=== PATIENT | female | born 1965 | race Caucasian/White ===

== ENCOUNTER 2020-01-14 11:25 | Outpatient (CLI) | payer BC, SELFPAY ==
--- NOTE | ~2020-01-14 | XR_ITS ---
XR ankle RT min 3V DATE: 01/14/2020 12:33 INDICATION: Chronic lateral pain; no injury. TECHNIQUE: 4 views COMPARISON: None FINDINGS: Very prominent plantar calcaneal enthesopathy without associated periostitis or erosive william nge. Minimal posterior calcaneal enthesopathy. Mild lateral soft tissue swelling of the ankle. No fracture or dislocation of the ankle or disruption of the ankle mortise. No periosteal reaction or bone destruction. IMPRESSION: Mild lateral soft tissue swelling Calcaneal enthesopathy, particularly prominent at the plantar aspect Reviewed, dictated and finalized at location B.
== END 2020-01-14 11:26 | disposition home or self-care (01) ==
LOC: ANHIMG 11:41
PROVIDERS: PCP Family Medicine; Visit Provider Family Medicine
DX: M79.89 Other specified soft tissue disorders (principal); M77.31 Calcaneal spur, right foot
CPT/HCPCS: 73610

== ENCOUNTER 2020-01-14 11:53 | Outpatient (CLI) | payer OTHER, BC, SELFPAY ==
--- NOTE | ~2020-01-14 | XR_ITS ---
XR ankle LT min 3V DATE: 01/14/2020 12:32 INDICATION: Rolled left ankle. Lateral pain and swelling, bruising TECHNIQUE: 4 views COMPARISON: 03/14/2015 left ankle FINDINGS: There is a chronic small accessory ossicle subjacent to the lateral malleolus, present on . Mild ankle joint effusion is suggested. There is anterolateral soft tissue swelling of the ankle. No fracture or dislocation of the ankle or disruption of the ankle mortise is evident. There is prominent plantar and posterior calcaneal enthesopathy. IMPRESSION: Anterolateral soft tissue swelling, probable mild ankle joint effusion. Reviewed, dictated and finalized at location B. IMPRESSION: Anterolateral soft tissue swelling, probable mild ankle joint effus ion.
== END 2020-01-14 11:54 | disposition home or self-care (01) ==
PROVIDERS: PCP Family Medicine; Visit Provider Family Medicine
DX: S93.402A Sprain of unspecified ligament of left ankle, initial encounter (principal); X58.XXXA Exposure to other specified factors, initial encounter; M79.89 Other specified soft tissue disorders
CPT/HCPCS: 73610

== ENCOUNTER 2022-10-18 09:06 | Outpatient (CLI) | payer BC, SELFPAY ==
--- NOTE | ~2022-10-18 | XR_ITS ---
Left foot Technique: AP, oblique, and lateral views were obtained. Clinical History: Pain Findings: No acute fracture or dislocation is seen. Osseous alignment is anatomic. Plantar calcaneal spur noted. Joint spaces are otherwise preserved without erosive or degenerative change. Soft tissues are unremarkable. Impression: Plantar calcaneal spur, otherwise unremarkable exam. Reviewed, dictated and finalized at location [] [employer] Impression: Plantar calcaneal spur, otherwise unremarkable exam.
== END 2022-10-18 09:07 | disposition home or self-care (01) ==
PROVIDERS: PCP Family Medicine; Visit Provider Physician Assistant Medical
DX: M79.672 Pain in left foot (principal); M77.32 Calcaneal spur, left foot
CPT/HCPCS: 73630

== ENCOUNTER 2024-04-08 03:41 | Day surgery (SDC) | payer BC, SELFPAY ==
[2024-03-20 14:33] VITALS: BMI 30.5
[2024-04-08 08:14] VITALS: BP 124/78; PULSE 75; RESP 18; TEMP 36.1; O2SAT 97
[2024-04-08] MEDS: LACTATED RINGERS 1,000 ML 150 ML IV CONT (08:24)
--- NOTE | 2024-04-08 08:35 | P.PNAN_ITS ---
Anes - Initial Pre Proc Eval Procedure: Operation Date: 04/08/24 09:30 Proposed Procedures p Screening Colonoscopy - Luigi Daniels MD Date/Time: 04/08/24 08:35 Surgeon: Luigi Daniels MD Pre Op Diagnosis: neoplasm screening Patient Data Age: 59 Gender: F Height: 1.7 m Weight: 93 kg Last Vital Signs Temp 97 F L 04/08/24 08:14 Pulse 75 04/08/24 08:14 Resp 18 04/08/24 08:14 BP 124/78 04/08/24 08:14 Pulse Ox 97 04/08/24 08:14 O2 Del Method Room Air 04/08/24 08:14 Allergies Allergy/AdvReac Type Severity Reaction Status Date / Time ketamine Allergy Hallucinati Verified 04/08/24 08:13 ng Home Medications Medication Instructions Recorded Confirmed Type naproxen 500 mg tablet,delayed 500 mg PO BID PRN pain #60 tabs 01/08/24 03/20/24 Rx release (EC-Naproxen) aspirin 325 mg tablet 325 mg PO DAILY 03/20/24 03/20/24 History hydrocodone 5 mg-acetaminophen 325 1 tablet PO DAILY PRN Pain 03/20/24 03/20/24 History mg tablet levothyroxine 150 mcg tablet 150 mcg PO DAILY #90 tabs 04/07/24 Rx Patient hx anesthesia problems: none Family hx anesthesia problems: none Results Review: All pre-operative results and documents have been reviewed as part of the pre- operative evaluation. [facility] Past Medical History Medical History Hypothyroidism, unspecified Thyroid nodule Family History Family History Other Family history of alcoholism Family history of malignant neoplasm of breast in first degree relative Social History Social History Smoking status: Never smoker Second hand tobacco smoke exposure: No Substance use: never Substance use type: does not use Living arrangements: with family Gender identity (if verbalized by the patient): Female Spiritual care concerns: No Agree to blood products: Yes Anes - Eval Final PreProcedure Day of Procedure 04/08/24 08:35 Patient weight: obese Heart: regular rate and rhythm Lungs: clear to auscultation Airway: Mallampati scale class II Neurological: alert and oriented Last oral intake: >/= 8 hours ASA classification: II Emergent: no Anesthetic plan: proceed Anesthesia type and monitoring: general GIVS and standard monitoring Results Review: All pre-operative results and documents have been reviewed as part of the pre- operative evaluation. Informed Consent: The patient's anesthetic plan and its attendant risks and benefits were discussed with the patient/family/POA. Questions were solicited and answers provided to the satisfaction of the patient/family/POA.
--- NOTE | 2024-04-08 09:12 | PM.HPGS ---
History of Present Illness History of Present Illness Consent: Risks, benefits, and alternatives have been discussed and questions answered. Patient agrees to proceed with procedure. Chief complaint: neoplasm screening Narrative: Isha Murdock is a 59 year old female here for first screening colonoscopy Review of Systems Review of Systems: All systems reviewed & are unremarkable except as noted in HPI and below PMFSH Past Medical History Medical History (Updated 04/08/24 @ 09:13 by Luigi Daniels MD) Colon cancer screening Hypothyroidism, unspecified Thyroid nodule Family History Family History (Reviewed 10/18/22 @ 08:26 by Ariana Dahl [facility]) Other Family history of alcoholism Family history of malignant neoplasm of breast in first degree relative Social History Social History Smoking status: Never smoker Second hand tobacco smoke exposure: No Substance use: never Substance use type: does not use Living arrangements: with family Gender identity (if verbalized by the patient): Female Spiritual care concerns: No Agree to blood products: Yes Meds Home Medications and Allergies Home Medications Medication Instructions Recorded Confirmed Type naproxen 500 mg tablet,delayed 500 mg PO BID PRN pain #60 tabs 01/08/24 03/20/24 Rx release (EC-Naproxen) aspirin 325 mg tablet 325 mg PO DAILY 03/20/24 03/20/24 History hydrocodone 5 mg-acetaminophen 325 1 tablet PO DAILY PRN Pain 03/20/24 03/20/24 History mg tablet levothyroxine 150 mcg tablet 150 mcg PO DAILY #90 tabs 04/07/24 Rx Allergies Allergy/AdvReac Type Severity Reaction Status Date / Time ketamine Allergy Hallucinati Verified 04/08/24 08:13 ng Vital Signs Vital Signs - 24 hr 04/08/24 08:14 Temperature 97 F L Pulse Rate 75 Respiratory Rate 18 Blood Pressure 124/78 Pulse Oximetry 97 Oxygen Delivery Room Air Exam Const: General: comfortable and no acute distress HENMT: Face/Nose/Sinus: Normal nares present Eyes: General: appearance normal, both eyes and all related structures Neck: Neck: no JVD Resp: Auscultation: clear to auscultation bilaterally Cardio: Rate: regular rate Rhythm: regular rhythm GI: Inspection: non-distended GI Palp: Yes Soft to palpation Skin: General skin exam: normal color Neuro: General: gait normal Speech: normal speech Extrem: General: normal to inspection Psych: Mental Status: mental status grossly normal Assessment and Plan Assessment and plan (1) Colon cancer screening: Code(s): Z12.11 - Encounter for screening for malignant neoplasm of colon Status: Acute Assessment and Plan: colonoscopy
[2024-04-08 09:35] VITALS: BP 97/47; PULSE 59; RESP 16; O2SAT 95
[2024-04-08 09:45] VITALS: BP 113/68; PULSE 62; RESP 16; O2SAT 93
[2024-04-08 09:55] VITALS: BP 139/68; PULSE 63; RESP 16; O2SAT 98
== END 2024-04-08 10:06 | disposition home or self-care (01) ==
PROVIDERS: PCP Family Medicine; Visit Provider Internal Medicine Gastroenterology
PROC: 0DJD8ZZ Inspection of Lower Intestinal Tract, Via Natural or Artificial Opening Endoscopic (ICD-10-PCS; CPT 45378; principal; 2024-04-08 09:30)
DX: Z12.11 Encounter for screening for malignant neoplasm of colon (principal); K63.5 Polyp of colon; K64.8 Other hemorrhoids; E03.9 Hypothyroidism, unspecified; E66.9 Obesity, unspecified; Z68.32 Body mass index [BMI] 32.0-32.9, adult
CPT/HCPCS: 45380; 88305; J2704; J7120